=== PATIENT | male | born 1990 | race Caucasian/White ===

== ENCOUNTER 2016-12-07 05:12 | Emergency (ER) | payer BC ==
--- NOTE | 2016-12-07 05:19 | PDOC ---
History of Present Illness - General Chief Complaint: Pain, Acute Stated Complaint: LEFT FLANK PAIN INTO LLQ Time Seen by Provider: 12/07/16 05:19 - History of Present Illness Initial Comments: 12/07/16 05:33 This 26-year-old man with a history of seizures, anxiety and one previous history of left sided flank pain presents with severe left flank/left lower quadrant pain that awakened him from sleep approximately 1 hour prior to presentation. He describes pain as sharp and continuous. He also has had nausea and vomiting (1 episode of vomiting at home prior to presentation).. No recent fever/chills. No recent hematuria/dysuria. No recent abdominal pain/ vomiting/diarrhea. No recent trauma. Patient had similar left sided flank pain that was less severe in July 2013. He presented here and workup, including renal stone protocol CT was negative for abnormality. Patient did well with analgesics and was discharged. In March, he had new onset seizure and was diagnosed as having epilepsy and started on antiseizure medications. Subsequently, he stopped all antiseizure medications. Thus far, he has not had any recurrent seizures Past medical history: History of coronary artery disease in father. No known history of renal colic/kidney stones Patient uses marijuana daily; no tobacco smoking; denies alcohol or other recreational drug use ALLERGIES: Lorabid Past History - Past Medical History Allergies/Adverse Reactions: Allergies Allergy/AdvReac Type Severity Reaction Status Date / Time loracarbef [From Lorabid] Allergy Verified 12/07/16 05:16 Home Medications: Ambulatory Orders NK [No Known Home Medication] 12/07/16 Anemia: No Psychiatric Problems: Yes (ANXIETY) - Immunization History Immunization Up to Date: No - Psycho/Social/Smoking Cessation Hx Anxiety: Yes (AND FAMILY) Suicidal Ideation: No Smoking Status: Yes Smoking History: Current some day smoker Have you smoked in the past 12 months: Yes Number of Cigarettes Smoked Daily: 1 'Breaking Loose' booklet given: 04/14/15 Hx Alcohol Use: No Drug/Substance Use Hx: No Substance Use Type: None Review of Systems - Review of Systems Able to Perform ROS?: Yes Comments:: 12 point review of systems is negative except for what is noted in the history of present illness *Physical Exam - Physical Exam Comments: GENERAL: Adult male, diaphoretic,hyperventilating and moaning in marked distress secondary to left flank pain Vital signs: BP 139/99, HR 50 and regular, 26/min, O2 100% on room air HEAD: Normal with no signs of trauma. EYES: PERRLA, EOMI, sclera anicteric, conjunctiva clear. ENT: Ears normal, nares patent, oropharynx clear without exudates. Dry mucous membranes. NECK: Normal range of motion, supple without lymphadenopathy, JVD, or masses. LUNGS: Breath sounds equal, clear to auscultation bilaterally. No wheezes, and no crackles. HEART:Regular rate and rhythm, normal S1 and S2 without murmur, rub or gallop. ABDOMEN: Normal bowel sounds, soft, nondistended, moderate left flank/left lower quadrant tenderness without peritoneal signs or masses. EXTREMITIES: Normal range of motion, no edema. No clubbing or cyanosis. No erythema, or tenderness. NEUROLOGICAL: Moving all 4 extremities equally MUSCULOSKELETAL: Back non-tender to palpation, no CVA tenderness SKIN: Warm, diaphoretic, normal turgor, no rashes or lesions noted. 12-lead electrocardiogram performed because of patient's marked bradycardia: This revealed junctional rhythm at 47 beats per minute; baseline was irregular but no clear evidence of acute ST/T-wave abnormalities ED Treatment Course - LABORATORY CBC & Chemistry Diagram: 12/07/16 06:20 12/07/16 06:20 Medical Decision Making - Medical Decision Making Sudden onset of left flank pain in this otherwise relatively healthy young man accompanied by nausea and vomiting is most consistent with renal colic patient was given a liter of normal saline, 30 mg of Toradol IV on presentation. He subsequently had vomiting (partially digested food) and was given 4 mg Zofran IV. Patient reported no relief of pain after IV Toradol and 1 mg of Dilaudid IV administered. Additional liter of normal saline given. Patient reported only minimal relief of pain and additional milligram of Dilaudid IV given 12/07/16 06:06 12-lead electrocardiogram showed junctional rhythm at 47 beats minute; only other previous EKG was performed on 04/14/15. This showed normal sinus rhythm at 97 beats/min without significant abnormalities. Review of the patient's vital signs during previous visits to this hospital show that his heart rate varies from 40s to 100 range per minute. 12/07/16 07:[address] interpreted by Imaging quality control lead shows minimal left hydroureter and periureteral inflammation as well as a 2 mm central bladder stone. This is all consistent with recently passed left ureteral stone. 12/07/16 07:16 Results discussed with the patient and his mother. Patient states that he still in significant pain and his anxiety will not resolve until his pain is significantly better. Patient will be given one more dose of Dilaudid 1 mg IV. Case discussed and signed out to incoming physician at end of shift. *DC/Admit/Observation/Transfer Diagnosis at time of Disposition: Ureteral colic - Discharge Dispostion Disposition: HOME Condition at time of disposition: Improved - Referrals Referrals: Santy Jc MD [Staff Physician] - (Please call for follow-up appointment- cardiology) Harry Tello MD [Staff Physician] - Call tomorrow (Urology-please call for follow-up appointment) Laura Gandara [Primary Care Provider] - - Patient Instructions Printed Discharge Instructions: Kidney Stones -- Adult, DI for Kidney Stones Additional Instructions: Increase fluid intake and strain urine Follow-up with urology Also, you had a few episodes of a slightly low heart rate here, I would like to set up a follow-up appointment with cardiology Followup with your primary care physician in 24-48 hours Return immediately if you worsen in any way Take your medications as directed - Post Discharge Activity Work/School Note: Back to Work
[2016-12-07 05:26] VITALS: TEMP 97.3; BMI 36.2
[2016-12-07] MEDS ORDERED: HYDROmorphone HCL CARPU-JECT 1 MG/1 ML DISP.SYRIN IVPUSH ONE ×3 (05:32→07:15)
[2016-12-07] MEDS ORDERED: SODIUM CHLORIDE 1,000 ML IV STA ×2 (05:32→06:35)
[2016-12-07] MEDS ORDERED: ONDANSETRON 4 MG/2 ML VIAL IVPUSH ONE (05:32)
[2016-12-07] MEDS ORDERED: KETOROLAC TROMETHAMINE 30 MG/1 ML VIAL IVPUSH ONE (05:32)
[2016-12-07 06:47] LABS: BASOPHIL 0.5 % (0-2.0); EOSINOPHIL 2.2 % (0-4.5); MCH 30.3 pg (25.7-33.7); MCHC 34.5 g/dl (32.0-35.9); MEAN CELL VOLUME 87.9 fl (80-96); MEAN PLT VOLUME 8.7 fl (7.5-11.1); NEUTROPHILS 67.7 % (42.8-82.8); PLATELET COUNT 233 K/MM3 (134-434); RDW 12.4 % (11.9-15.9); WHITE BLOOD COUNT 9.5 K/mm3 (4.0-10.0)
[2016-12-07 06:59] LABS: INR 1.26 (0.82-1.09); PROTHROMBIN TIME (PATIENT) 13.9 SEC (9.98-11.88)
[2016-12-07 07:05] LABS: ALBUMIN 3.8 g/dl (3.4-5.0); ALK PHOS 69 U/L (45-117); ANION GAP 8 (8-16); BILIRUBIN,TOTAL 0.7 mg/dL (0.2-1.0); CALCIUM 8.2 mg/dL (8.5-10.1); CO2 25 mmol/L (21-32); CREATININE 0.8 mg/dL (0.7-1.3); GLUCOSE,RANDOM 91 mg/dL (74-106); SGOT/AST 22 U/L (15-37); SGPT/ALT 26 U/L (12-78); TOT PROT 6.5 g/dl (6.4-8.2)
[2016-12-07 07:09] LABS: TROPONIN I < 0.02 ng/ml (0.00-0.05)
[2016-12-07] MEDS ORDERED: HYDROmorphone HCL CARPU-JECT 2 MG/1 ML DISP.SYRIN ONE (07:24)
[2016-12-07 07:47] VITALS: BP 114/54
[2016-12-07 08:23] LABS: PH,URINE 7.5 (4.5-8); URINE APPEARANCE Clear; URINE BILIRUBIN Negative (NEGATIVE); URINE GLUCOSE (UA) Negative (NEGATIVE); URINE KETONE 1+ (NEGATIVE); URINE LEUK ESTERASE Negative (NEGATIVE); URINE NITRITE Negative (NEGATIVE); URINE PROTEIN Negative (NEGATIVE); URINE UROBILINOGEN 0.2 E.U/dl (0.2-1.0)
[2016-12-07 08:28] LABS: URINE COLOR YELLOW
--- NOTE | 2016-12-07 08:29 | PDOC ---
*Physical Exam - Vital Signs Last Vital Signs Temp Pulse Resp BP Pulse Ox 97.3 F L 48 L 20 114/54 100 12/07/16 05:20 12/07/16 07:45 12/07/16 07:45 12/07/16 07:45 12/07/16 07:45 - Physical Exam Comments: 12/07/16 08:28 SIGN IN Sign-out received from outgoing Emergency Physician Pt interviewed and examined Ancillary studies reviewed 26-year-old male with left flank pain radiating to the left lower quadrant Came in in severe pain, and his CAT scan showed the following- Noncontrast renal protocol CT interpreted by Imaging it communications specialist shows minimal left hydroureter and periureteral inflammation as well as a 2 mm central bladder stone. This is all consistent with recently passed left ureteral stone. Patient is now feeling much better, pain is also completely gone, he was finally able to urinate, and we sent a urine sample I am waiting for results of the UA 12/07/16 08:54 Patient remains pain free UA reviewed Wants to go home Strain urine, and urology follow-up Patient also had a few episodes of asymptomatic bradycardia during his period of observation in the emergency department He is now in sinus rhythm at this time Will refer to outpatient cardiology 12/07/16 09:08 Patient states that he has had episodes of bradycardia in the past, and has seen a frame maker for this-Dr. Hernandez, at [facility] cardiology group, and had a stress test and complete workup, and was cleared He states that sometimes his heart rate gets low but he is asymptomatic with this Repeat heart rate 60 at time of discharge ED Treatment Course - LABORATORY CBC & Chemistry Diagram: 12/07/16 06:20 12/07/16 06:20 - ADDITIONAL ORDERS Additional order review: Laboratory Results 12/07/16 12/07/16 12/07/16 06:20 06:20 06:10 INR 1.26 H Sodium 142 Potassium 4.0 Chloride 109 H Carbon Dioxide 25 Anion Gap 8 BUN 17 D Creatinine 0.8 Creat Clearance w eGFR > 60 Random Glucose 91 Calcium 8.2 L Total Bilirubin 0.7 D AST 22 D ALT 26 Alkaline Phosphatase 69 Creatine Kinase Creatine Kinase Index CK-MB (CK-2) CK-MB (CK-2) Rel Index Cancelled Troponin I Total Protein 6.5 Albumin 3.8 12/07/16 06:10 INR Sodium Potassium Chloride Carbon Dioxide Anion Gap BUN Creatinine Creat Clearance w eGFR Random Glucose Calcium Total Bilirubin AST ALT Alkaline Phosphatase Creatine Kinase 194 Creatine Kinase Index 1.3 CK-MB (CK-2) 2.454 CK-MB (CK-2) Rel Index Troponin I < 0.02 Total Protein Albumin 12/07/16 06:20 RBC 4.66 MCV 87.9 MCHC 34.5 RDW 12.4 MPV 8.7 Neutrophils % 67.7 Lymphocytes % 20.7 D Monocytes % 8.9 Eosinophils % 2.2 Basophils % 0.5 - Medications Given in the ED: ED Medications Discontinued Medications Generic Name Dose Route Start Last Admin Trade Name Freq PRN Reason Stop Dose Admin Hydromorphone HCl 1 mg 12/07/16 05:32 12/07/16 05:39 Dilaudid Injection - IVPUSH 12/07/16 05:33 1 mg ONCE ONE Administration Hydromorphone HCl 1 mg 12/07/16 05:33 12/07/16 05:30 Dilaudid Injection - IVPUSH 12/07/16 05:34 1 mg ONCE ONE Administration Hydromorphone HCl 1 mg 12/07/16 07:15 12/07/16 07:28 Dilaudid Injection - IVPUSH 12/07/16 07:16 1 mg ONCE ONE Administration Sodium Chloride 1,000 mls @ 1,000 mls/hr 12/07/16 05:32 12/07/16 05:38 Normal Saline - IV 12/07/16 06:31 1,000 mls/hr ASDIR STA Administration Sodium Chloride 1,000 mls @ 1,000 mls/hr 12/07/16 06:35 12/07/16 06:54 Normal Saline - IV 12/07/16 07:34 1,000 mls/hr ASDIR STA Administration Ketorolac Tromethamine 30 mg 12/07/16 05:32 12/07/16 05:20 Toradol Injection - IVPUSH 12/07/16 05:33 30 mg ONCE ONE Administration Ondansetron HCl 4 mg 12/07/16 05:32 12/07/16 05:25 Zofran Injection IVPUSH 12/07/16 05:33 4 mg ONCE ONE Administration *DC/Admit/Observation/Transfer Diagnosis at time of Disposition: Ureteral colic - Discharge Dispostion Disposition: HOME Condition at time of disposition: Improved - Referrals Referrals: Laura Gandara [Primary Care Provider] - Harry Tello MD [Staff Physician] - Call tomorrow (Urology-please call for follow-up appointment) Santy Jc MD [Staff Physician] - (Please call for follow-up appointment- cardiology) - Patient Instructions Printed Discharge Instructions: Kidney Stones -- Adult, DI for Kidney Stones Additional Instructions: Increase fluid intake and strain urine Follow-up with urology Also, you had a few episodes of a slightly low heart rate here, I would like to set up a follow-up appointment with cardiology Followup with your primary care physician in 24-48 hours Return immediately if you worsen in any way Take your medications as directed - Post Discharge Activity Work/School Note: Back to Work
[2016-12-07 09:09] VITALS: PULSE 60
--- NOTE | 2016-12-07 14:45 | EKG ---
Test Reason : Blood Pressure : / mmHG Vent. Rate : 047 BPM Atrial Rate : 047 BPM P-R Int : 000 ms QRS Dur : 094 ms QT Int : 478 ms P-R-T Axes : 000 069 047 degrees QTc Int : 423 ms POOR DATA QUALITY, INTERPRETATION MAY BE ADVERSELY AFFECTED Likely sinus bradycardia WHEN COMPARED WITH ECG OF 14-APR-2015 00:37, VENT. RATE HAS DECREASED BY 50 BPM Confirmed by MD ROOSEVELT, CHAPARRITA ([id number]) on 12/07/2016 2:45:17 PM Referred By: MD ARIAS Confirmed By:CHAPARRITA ALBERT MD
[2016-12-07 14:55] LABS: URINE BLOOD Trace-intact (NEGATIVE)
== END 2016-12-07 09:14 | disposition home or self-care (01) ==
LOC: FER 05:12
DX: N20.1 Calculus of ureter (principal)
CPT/HCPCS: 36415; 74176; 80053; 81003; 82550; 82553; 84484; 85025; 85610; 93005; 99283-25